=== PATIENT | female | born 1945 | race Asian ===

== ENCOUNTER 2017-04-03 19:56 | Emergency (ER) | payer MEDICARE ==
[~2017-04-03] VITALS: Ht 167.6 cm; Wt 88.0 kg
[2017-04-03 19:57] VITALS: BP 168/79; PULSE 78; RESP 16; TEMP 98.5; O2SAT 96
--- NOTE | 2017-04-03 21:23 | PD ---
HPI Chief Complaint: Cold / Flu Symptoms Time Seen by Provider: 21:23 Travel History International Travel<30 days: No Contact w/Intl Traveler<30days: No Traveled to known affect area: No History of Present Illness HPI 71-year-old female presents the emergency department with 3 day history of upper respiratory symptoms including hepatitis congestion, headache, postnasal drip, sore throat, chest congestion with wheezing, and nausea without vomiting or diarrhea. She has had chills but is on sure she's had a fever. She recently and the cruise, were 40% of the passengers were ill according to the patient. She is concerned about possible influenza. She states her cough is worse at night when she lays down. Patient does have rheumatoid arthritis for which she takes methotrexate once weekly, but she held this week's dose on as she states that she didn't want to suppress her immunity. Patient normally does not have wheezing or lung trouble. She states other than the ER here, she is very healthy. She has no known drug allergies. PFSH Past Surgical History Hysterectomy: Yes (partial) Social History Alcohol Use: Yes Tobacco Use: No Substance Use: No Allergies-Medications (Allergen,Severity, Reaction): Coded Allergies: No Known Drug Allergies (Verified Allergy, Unknown, 04/03/17) Reported Meds & Prescriptions Reported Meds & Active Scripts Active Zofran (Ondansetron HCl) 4 Mg Tab 4 Mg PO Q6HR PRN Prednisone 20 Mg Tab 20 Mg PO DAILY 5 Days Flonase Nasal [place] (Fluticasone Nasal [place]) 50 Mcg/Act [place] 100 Mcg EACH NARE BID Amoxicillin 875 Mg Tab 875 Mg PO BID 10 Days Reported Methotrexate 2.5 Mg Tab 20 Mg PO Q7D Review of Systems Except as stated in HPI: all other systems reviewed are Neg General / Constitutional: Positive: Fever, Chills (subjective) Eyes: No: Visual changes HENT: Positive: Headaches, Lightheadedness, Sore Throat, Rhinitis, Rhinorrhea, Congestion, No: Vertigo, Nosebleed, Neck Stiffness, Neck Pain, Dental Difficulties, Earache Cardiovascular: No: Chest Pain or Discomfort Respiratory: Positive: Cough, Shortness of Breath, Wheezing Gastrointestinal: Positive: Nausea, No: Vomiting, Diarrhea, Abdominal Pain Genitourinary: No: Dysuria Musculoskeletal: Positive: Myalgias, No: Pain Skin: No Rash Neurologic: No: Weakness Psychiatric: No: Depression Endocrine: No: Polydipsia Hematologic/Lymphatic: No: Easy Bruising Physical Exam Narrative GENERAL: Patient appears mildly ill but not septic. SKIN: Warm and dry. Mild decrease in pallor. Normal turgor. HEAD: Atraumatic. Normocephalic. EYES: Pupils equal and round. No scleral icterus. No injection or drainage. ENT: No nasal bleeding or discharge. Mucous membranes pink and moist. Patient has mild to moderate tenderness with palpation of the left frontal and maxillary sinuses. TMs are dull bilaterally without injection. Posterior pharynx is generally irritated appearing, without significant erythema swelling. Uvula is midline. No exudate. There appears to be postnasal drip in the posterior pharynx noted which is yellowish white. NECK: Trachea midline. No JVD. CARDIOVASCULAR: Regular rate and rhythm. RESPIRATORY: No accessory muscle use. Coarse with end expiratory wheezing to auscultation. Breath sounds equal bilaterally. GASTROINTESTINAL: Abdomen soft, non-tender, nondistended. Hepatic and splenic margins not palpable. MUSCULOSKELETAL: Extremities without clubbing, cyanosis, or edema. No obvious deformities. NEUROLOGICAL: Awake and alert. No obvious cranial nerve deficits. Motor grossly within normal limits. Five out of 5 muscle strength in the arms and legs. Normal speech. PSYCHIATRIC: Appropriate mood and affect; insight and judgment normal. Data Data Last Documented VS Vital Signs Date Time Temp Pulse Resp B/P (MAP) Pulse Ox O2 Delivery O2 Flow Rate FiO2 04/03/17 21:53 57 18 167/79 (108) 97 Room Air 04/03/17 19:57 98.5 Orders Orders Complete Blood Count With Diff (04/03/17 21:29) Comprehensive Metabolic Panel (04/03/17 21:29) Iv Access Insert/Monitor (04/03/17 21:29) Ecg Monitoring (04/03/17 21:29) Oximetry (04/03/17 21:29) Ondansetron Inj (Zofran Inj) (04/03/17 21:30) Sodium Chlor 0.9% 1000 Ml Inj (Ns 1000 M (04/03/17 21:29) Sodium Chloride 0.9% Flush (Ns Flush) (04/03/17 21:30) Chest, Single Ap (04/03/17 21:29) Acetaminophen (Tylenol) (04/03/17 21:30) Albuterol-Ipratropium Neb (Duoneb Neb) (04/03/17 21:30) Influenzae A/B Antigen (04/03/17 21:29) Amoxicillin (Trimox) (04/03/17 22:45) Prednisone (Deltasone) (04/03/17 22:45) Ed Discharge Order (04/03/17 22:48) Labs Laboratory Tests Test 04/03/17 21:46 White Blood Count 5.1 TH/MM3 Red Blood Count 4.50 MIL/MM3 Hemoglobin 14.3 GM/DL Hematocrit 42.2 % Mean Corpuscular Volume 93.8 FL Mean Corpuscular Hemoglobin 31.9 PG Mean Corpuscular Hemoglobin Concent 34.0 % Red Cell Distribution Width 13.8 % Platelet Count 208 TH/MM3 Mean Platelet Volume 8.4 FL Neutrophils (%) (Auto) 48.5 % Lymphocytes (%) (Auto) 39.7 % Monocytes (%) (Auto) 9.7 % Eosinophils (%) (Auto) 1.6 % Basophils (%) (Auto) 0.5 % Neutrophils # (Auto) 2.5 TH/MM3 Lymphocytes # (Auto) 2.0 TH/MM3 Monocytes # (Auto) 0.5 TH/MM3 Eosinophils # (Auto) 0.1 TH/MM3 Basophils # (Auto) 0.0 TH/MM3 CBC Comment DIFF FINAL Differential Comment Blood Urea Nitrogen 12 MG/DL Creatinine 0.77 MG/DL Random Glucose 96 MG/DL Total Protein 7.6 GM/DL Albumin 4.0 GM/DL Calcium Level 9.1 MG/DL Alkaline Phosphatase 83 U/L Aspartate Amino Transf (AST/SGOT) 39 U/L Alanine Aminotransferase (ALT/SGPT) 53 U/L Total Bilirubin 0.4 MG/DL Sodium Level 137 MEQ/L Potassium Level 3.6 MEQ/L Chloride Level 102 MEQ/L Carbon Dioxide Level 28.8 MEQ/L Anion Gap 6 MEQ/L Estimat Glomerular Filtration Rate 74 ML/MIN [facility] Medical Decision Making Medical Screen Exam Complete: Yes Emergency Medical Condition: Yes Differential Diagnosis Influenza. Bronchitis. Wheezing. Sinusitis. Narrative Course Patient is medically stable at time of exam. Chest x-ray is ordered. Labs ordered including CBC, CMP, and rapid influenza. IV access is obtained patient is given 4 mg Zofran IV as well as 1000 mL normal saline bolus. Patient is given 1000 mg of acetaminophen by mouth. Chest x-ray is negative for acute process per radiologist. Labs are unremarkable. Rapid influenza is negative. Patient is felt to have acute wheezy bronchitis, as well as left maxillary sinusitis. She will be treated with amoxicillin 875 mg twice a day a day 10 days. Patient is given prednisone 20 mg daily for 5 days. Patient is started on Flonase nasal spray 2 sprays each nostril daily. Patient is given Zofran 4 mg one every 6 hours when necessary nausea #12 Patient follow-up with her primary care physician as needed. Diagnosis Primary Impression: Acute maxillary sinusitis, unspecified Qualified Codes: J01.01 - Acute recurrent maxillary sinusitis Additional Impression: Bronchitis Referrals: Primary Care Physician Patient Instructions: Acute Bronchitis (ED), General Instructions, Sinusitis ( ED) Additional Instructions: Chest x-ray is negative for acute process per radiologist. Labs are unremarkable. Rapid influenza is negative. Patient is felt to have acute wheezy bronchitis, as well as left maxillary sinusitis. She will be treated with amoxicillin 875 mg twice a day a day 10 days. Patient is given prednisone 20 mg daily for 5 days. Patient is started on Flonase nasal spray 2 sprays each nostril daily. Patient is given Zofran 4 mg one every 6 hours when necessary nausea #12 Patient follow-up with her primary care physician as needed. Med/Other Pt SpecificInfo: Prescription(s) given Scripts Ondansetron (Zofran) 4 Mg Tab 4 MG PO Q6HR Y for NAUSEA OR VOMITING, #12 TAB 0 Refills Prov: Daniel Manuel MD 04/03/17 Prednisone (Prednisone) 20 Mg Tab 20 MG PO DAILY for 5 Days, #5 TAB 0 Refills Prov: Daniel Manuel MD 04/03/17 Fluticasone Nasal [place] (Flonase Nasal [place]) 50 Mcg/Act [place] 100 MCG EACH NARE BID for Allergies, #1 BOTTLE 0 Refills Prov: Daniel Manuel MD 04/03/17 Amoxicillin (Amoxicillin) 875 Mg Tab 875 MG PO BID for Infection for 10 Days, #20 TAB 0 Refills Prov: Daniel Manuel MD 04/03/17 Disposition: 01 DISCHARGE HOME Condition: Stable Niraj Damon Apr 03, 2017 21:23
[2017-04-03] MEDS ORDERED: SODIUM CHLOR 0.9% 1000 ML INJ 1,000 ML IV SCH (21:29)
[2017-04-03] MEDS ORDERED: RESP: ALBUTEROL 2.5 MG/IPRATROPIUM 0.5 MG NEB (SCH) INH ONE (21:30)
[2017-04-03] MEDS ORDERED: ACETAMINOPHEN 500 MG CPLT PO ONE (21:30)
[2017-04-03] MEDS ORDERED: SODIUM CHLORIDE 0.9% FLUSH 10 ML FLUSH IV FLUSH PRN (21:30)
[2017-04-03] MEDS ORDERED: ONDANSETRON HCL 4 MG/2 ML VIAL IVP ONE (21:30)
[2017-04-03] MEDS ORDERED: METH2.5T PO (21:35)
[2017-04-03 21:48] VITALS: O2SAT 97
[2017-04-03 21:53] VITALS: BP 167/79; PULSE 57; RESP 18; O2SAT 97
--- NOTE | 2017-04-03 21:54 | RADRPT ---
EXAM DATE/TIME: 04/03/2017 21:47 [place] COMPARISON: No previous studies available for comparison. INDICATIONS : Cough. Nausea. MEDICAL HISTORY : None. SURGICAL HISTORY : None. ENCOUNTER: Initial ACUITY: 3 days PAIN SCORE: 0/10 LOCATION: Bilateral chest FINDINGS: A single view of the chest demonstrates the lungs to be symmetrically aerated without evidence of mas s, infiltrate or effusion. The cardiomediastinal contours are unremarkable. Osseous structures are intact. CONCLUSION: No evidence of acute cardiopulmonary disease. Rafal Junior MD on April 03, 2017 at 21:52 Board Certified Radiologist. This report was verified electronically.
[2017-04-03 22:27] LABS: AUTOMATED NEUTROPHIL # 2.5 TH/MM3 (1.8-7.7); BASOPHIL % 0.5 % (0.0-2.0); EOSINOPHIL # 0.1 TH/MM3 (0-0.4); EOSINOPHIL % 1.6 % (0.0-4.0); HEMATOCRIT 42.2 % (35.0-46.0); HEMOGLOBIN 14.3 GM/DL (11.6-15.3); LYMPH % 39.7 % (9.0-44.0); MEAN CELL VOLUME 93.8 FL (80.0-100.0); MEAN CORPUSCULAR HEMOGLOBIN 31.9 PG (27.0-34.0); MEAN PLATELET VOLUME 8.4 FL (7.0-11.0); MONO % 9.7 % (0.0-8.0); MONOCYTE # 0.5 TH/MM3 (0-0.9); NEUT % 48.5 % (16.0-70.0); PLATELET COUNT 208 TH/MM3 (150-450); RED CELL DISTRIBUTION WIDTH 13.8 % (11.6-17.2); WHITE BLOOD COUNT 5.1 TH/MM3 (4.0-11.0)
[2017-04-03 22:39] LABS: AST (GOT) 39 U/L (15-37); BICARBONATE 28.8 MEQ/L (21.0-32.0); BLOOD UREA NITROGEN 12 MG/DL (7-18); CALCIUM 9.1 MG/DL (8.5-10.1); CHLORIDE 102 MEQ/L (98-107); CREATININE 0.77 MG/DL (0.50-1.00); GLOMERULAR FILTRATION RATE 74 ML/MIN (>89); GLUCOSE,RANDOM 96 MG/DL (74-106); SODIUM (NA) 137 MEQ/L (136-145)
[2017-04-03 22:41] LABS: ALT (GPT) 53 U/L (10-53)
[2017-04-03 22:42] LABS: ALKALINE PHOSPHATASE 83 U/L (45-117); TOTAL BILIRUBIN ADULT 0.4 MG/DL (0.2-1.0); TOTAL PROTEIN 7.6 GM/DL (6.4-8.2)
[2017-04-03] MEDS ORDERED: predniSONE 20 MG TAB PO ONE (22:45)
[2017-04-03] MEDS ORDERED: AMOXICILLIN 875 MG TAB PO ONE (22:45)
[2017-04-03] MEDS ORDERED: FLUT1SPR5 EACH NARE (22:47)
[2017-04-03] MEDS ORDERED: AMOX875T PO (22:47)
[2017-04-03] MEDS ORDERED: ZOFR4TAB PO (22:47)
[2017-04-03] MEDS ORDERED: PRED20 PO (22:47)
== END 2017-04-04 00:04 | disposition home or self-care (01) ==
LOC: NEPC 19:56
DX: J01.01 Acute recurrent maxillary sinusitis (principal); J40 Bronchitis, not specified as acute or chronic
CPT/HCPCS: 71045; 80053; 85025; 87804; 94664; 96361; 96374; 99284; J2405; J7030; J7512